=== PATIENT | male | born 1955 | race Two or more races ===

== ENCOUNTER → 2018-12-19 | Day surgery (SDC) | payer OTHER | END | disposition home or self-care (01) | LOC: ADM 12-12 12:30 → AMB-ENDOS 12:00 | DX: K64.2 Third degree hemorrhoids (principal) ==

== ENCOUNTER 2019-04-02 16:38 | Outpatient (CLI) | payer OTHER | END 2019-04-02 16:47 | disposition home or self-care (01) | LOC: RAD 16:38 | DX: R07.89 Other chest pain (principal) ==